=== PATIENT | female | born 1980 ===

== ENCOUNTER 2025-03-29 09:08 | Outpatient (CLI) | payer OTHER | END 2025-03-29 09:11 | disposition home or self-care (01) | LOC: SONOGRAMA 09:08 | DX: R10.2 Pelvic and perineal pain (principal); D25.9 Leiomyoma of uterus, unspecified ==

== ENCOUNTER 2025-04-26 09:54 | Outpatient (CLI) | payer OTHER | END 2025-04-26 10:04 | disposition home or self-care (01) | LOC: MAMO-SONO 09:54 | DX: N64.9 Disorder of breast, unspecified (principal); N60.12 Diffuse cystic mastopathy of left breast; N64.4 Mastodynia; N63.0 Unspecified lump in unspecified breast ==